=== PATIENT | female | born 1960 | race Caucasian/White ===

== ENCOUNTER → 2017-09-01 | Outpatient (CLI) | payer OTHER | LOC: MAMMO 08:57 | DX: Z12.31 Encounter for screening mammogram for malignant neoplasm of breast (principal) | CPT/HCPCS: G0202 ==

== ENCOUNTER → 2018-08-23 | Outpatient (CLI) | payer OTHER | LOC: MAMMO 09:03 | DX: Z12.31 Encounter for screening mammogram for malignant neoplasm of breast (principal) ==

== ENCOUNTER 2019-01-23 12:30 | Inpatient (IN) | payer OTHER ==
[~2019-01-23] VITALS: Ht 152.4 cm; Wt 81.5 kg
[2019-01-23] MEDS ORDERED: VITAMIN D32000 UNIT PO (12:42)
[2019-01-23] MEDS ORDERED: NORVASC 10MG10 MG PO (12:42)
[2019-01-23] MEDS ORDERED: MAGNESIUM100 M1 PO (12:43)
[2019-01-23] MEDS ORDERED: PRILOSEC OTC20 MG PO (12:44)
[2019-01-23] MEDS ORDERED: INDERAL LA120 MG PO (12:44)
[2019-01-23] MEDS ORDERED: NATURE'S BLEND100 M1 PO (12:45)
[2019-01-23 13:21] LABS: EOS # 0.3 (0.04-0.40); EOS % 2.9 % (1.0-5.0); HEMATOCRIT 44.9 % (37.0-47.0); HEMOGLOBIN 14.3 g/dL (12.5-16.0); LYMPH# 2.1 (1.50-4.00); MEAN CELL VOLUME 84 fl (78-100); MEAN CORPUSCULAR HEMOGLOBIN 27 pg (27-31); MEAN CORPUSCULAR HGB CONC 32 g/dL (33-37); MEAN PLATELET VOLUME 10.6 fl (7.4-10.4); MONO # 0.8 (0.20-0.80); NEU # 7.1 (1.40-6.50); PLATELET COUNT 334 K/mm3 (130-400); RED BLOOD COUNT 5.33 M/mm3 (4.10-5.30); RED CELL DISTRIBUTION WIDTH 14.1 % (11.5-14.5); WHITE BLOOD COUNT 10.3 K/mm3 (4.8-10.8)
[2019-01-23 13:30] LABS: ALBUMIN 4.3 g/dL (3.5-5.0); CALCIUM 10.2 mg/dL (8.4-10.2); POTASSIUM 4.3 mmol/L (3.6-5.0); TOTAL BILIRUBIN 0.7 mg/dL (0.2-1.3); TOTAL PROTEIN 7.1 g/dL (6.3-8.2)
[2019-01-23 15:50] VITALS: BP 119/68
[2019-01-23 15:58] VITALS: BP 119/68
[2019-01-23 16:21] LABS: URINE APPEARANCE CLEAR; URINE BILIRUBIN NEGATIVE (NEGATIVE); URINE BLOOD NEGATIVE (NEGATIVE); URINE COLOR YELLOW; URINE GLUCOSE NEGATIVE (NEGATIVE); URINE KETONE NEGATIVE (NEGATIVE); URINE LEUKOCYTE ESTERASE NEGATIVE (NEGATIVE); URINE NITRATE NEGATIVE (NEGATIVE); URINE PROTEIN(semi-quant) NEGATIVE (NEGATIVE); URINE UROBILINOGEN NORMAL (NORMAL)
[2019-01-23 18:13] VITALS: BP 104/63
[2019-01-23 23:42] VITALS: BP 96/63
[2019-01-24 02:35] VITALS: BP 97/57
[2019-01-24 06:22] VITALS: BP 105/69
[2019-01-24 08:34] LABS: EOS # 0.2 (0.04-0.40); HEMATOCRIT 38.5 % (37.0-47.0); HEMOGLOBIN 11.9 g/dL (12.5-16.0); LYMPH# 1.7 (1.50-4.00); MEAN CELL VOLUME 87 fl (78-100); MEAN CORPUSCULAR HEMOGLOBIN 27 pg (27-31); MEAN CORPUSCULAR HGB CONC 31 g/dL (33-37); MEAN PLATELET VOLUME 10.4 fl (7.4-10.4); MONO # 0.4 (0.20-0.80); PLATELET COUNT 264 K/mm3 (130-400); RED BLOOD COUNT 4.43 M/mm3 (4.10-5.30); RED CELL DISTRIBUTION WIDTH 14.3 % (11.5-14.5); WHITE BLOOD COUNT 5.3 K/mm3 (4.8-10.8)
[2019-01-24 08:47] LABS: CALCIUM 8.4 mg/dL (8.4-10.2); POTASSIUM 3.7 mmol/L (3.6-5.0)
[2019-01-24 10:59] VITALS: BP 118/64
[2019-01-24 14:55] VITALS: BP 105/70
[2019-01-24 18:00] VITALS: BP 134/77
[2019-01-24 23:09] VITALS: BP 118/64
[2019-01-25 06:16] VITALS: BP 123/66
[2019-01-25 07:49] LABS: EOS # 0.2 (0.04-0.40); EOS % 4.1 % (1.0-5.0); HEMOGLOBIN 12.5 g/dL (12.5-16.0); LYMPH# 1.4 (1.50-4.00); MEAN CELL VOLUME 86 fl (78-100); MEAN CORPUSCULAR HEMOGLOBIN 27 pg (27-31); MEAN CORPUSCULAR HGB CONC 31 g/dL (33-37); MEAN PLATELET VOLUME 10.2 fl (7.4-10.4); MONO # 0.4 (0.20-0.80); NEU # 3.5 (1.40-6.50); PLATELET COUNT 262 K/mm3 (130-400); RED BLOOD COUNT 4.64 M/mm3 (4.10-5.30); RED CELL DISTRIBUTION WIDTH 13.9 % (11.5-14.5); WHITE BLOOD COUNT 5.6 K/mm3 (4.8-10.8)
[2019-01-25 08:28] LABS: CALCIUM 9.1 mg/dL (8.4-10.2); POTASSIUM 3.9 mmol/L (3.6-5.0)
[2019-01-25 11:06] VITALS: BP 144/76
[2019-01-25] MEDS ORDERED: PHENERGAN 25 TA25 MG PO (13:05)
== END 2019-01-25 13:56 | disposition home or self-care (01) | DRG 390 ==
LOC: ED 12:30 → MED/SURG 15:09
PROVIDERS: Physician Assistant; ADMIT Nurse Practitioner Primary Care
DX: K56.600 Partial intestinal obstruction, unspecified as to cause (principal); G43.909 Migraine, unspecified, not intractable, without status migrainosus; I10 Essential (primary) hypertension; F32.9 Major depressive disorder, single episode, unspecified; K21.9 Gastro-esophageal reflux disease without esophagitis; Z88.0 Allergy status to penicillin; Z88.8 Allergy status to other drugs, medicaments and biological substances
CPT/HCPCS: C9113; J1650; J2270; J2405; J2550; J7030; Q9967

== ENCOUNTER → 2020-05-21 | Outpatient (CLI) | payer OTHER ==
[~2020-05-21] MED LIST: INDERAL LA120 MG PO; MAGNESIUM100 M1 PO; NATURE'S BLEND100 M1 PO; NORVASC 10MG10 MG PO; PHENERGAN 25 TA25 MG PO; PRILOSEC OTC20 MG PO; VITAMIN D32000 UNIT PO
== END ==
LOC: MAMMO 10:45
DX: Z12.31 Encounter for screening mammogram for malignant neoplasm of breast (principal)

== ENCOUNTER → 2021-05-13 | Outpatient (CLI) | payer OTHER | LOC: MAMMO 12:42 | DX: Z12.31 Encounter for screening mammogram for malignant neoplasm of breast (principal) ==

== ENCOUNTER → 2022-02-04 | Outpatient (CLI) | payer OTHER ==
[2022-02-04 13:51] LABS: BASO # 0.04 K/mm3 (0.02-0.10); EOS # 0.44 K/mm3 (0.04-0.40); EOS % 4.5 % (1.0-5.0); HEMATOCRIT 42.5 % (37.0-47.0); HEMOGLOBIN 13.7 g/dL (12.5-16.0); LYMPH# 2.16 K/mm3 (1.50-4.00); MEAN CELL VOLUME 86 fl (78-100); MEAN CORPUSCULAR HEMOGLOBIN 28 pg (27-31); MEAN CORPUSCULAR HGB CONC 32 g/dL (33-37); MEAN PLATELET VOLUME 9.5 fl (7.4-10.4); MONO # 0.49 K/mm3 (0.20-0.80); NEU # 6.49 K/mm3 (1.40-6.50); PLATELET COUNT 312 K/mm3 (130-400); RED BLOOD COUNT 4.97 M/mm3 (4.10-5.30); RED CELL DISTRIBUTION WIDTH 13.6 % (11.5-14.5); WHITE BLOOD COUNT 9.7 K/mm3 (4.8-10.8)
== END ==
LOC: LAB 13:33
PROVIDERS: Internal Medicine
DX: D50.0 Iron deficiency anemia secondary to blood loss (chronic) (principal)

== ENCOUNTER → 2022-07-01 | Outpatient (CLI) | payer OTHER | LOC: MAMMO 09:09 | DX: Z12.31 Encounter for screening mammogram for malignant neoplasm of breast (principal) ==

== ENCOUNTER 2023-02-06 11:32 | Emergency (ER) | payer OTHER ==
[~2023-02-06] VITALS: Ht 149.9 cm; Wt 81.5 kg
[2023-02-06] MEDS ORDERED: TIZANIDINE HYDRO4 MG PO (12:10)
[2023-02-06] MEDS ORDERED: METOPROLOL SUCC50 M1 PO (12:10)
[2023-02-06] MEDS ORDERED: GLUCOPHAGE PO (12:11)
[2023-02-06] MEDS ORDERED: KETOROLAC10 MG PO (12:12)
[2023-02-06] MEDS ORDERED: PHENERGAN 25 TA25 MG PO (12:13)
[2023-02-06 12:58] LABS: BASO # 0.04 K/mm3 (0.02-0.10); EOS # 0.19 K/mm3 (0.04-0.40); EOS % 2.2 % (1.0-5.0); HEMATOCRIT 44.9 % (37.0-47.0); HEMOGLOBIN 13.9 g/dL (12.5-16.0); LYMPH# 2.03 K/mm3 (1.50-4.00); MEAN CELL VOLUME 79 fl (78-100); MEAN CORPUSCULAR HEMOGLOBIN 24 pg (27-31); MEAN CORPUSCULAR HGB CONC 31 g/dL (33-37); MEAN PLATELET VOLUME 11.6 fl (7.4-10.4); MONO # 0.43 K/mm3 (0.20-0.80); NEU # 5.74 K/mm3 (1.40-6.50); PLATELET COUNT 248 K/mm3 (130-400); RED BLOOD COUNT 5.69 M/mm3 (4.10-5.30); WHITE BLOOD COUNT 8.5 K/mm3 (4.8-10.8)
[2023-02-06 13:07] LABS: POTASSIUM 4.3 mmol/L (3.5-5.1)
[2023-02-06 13:08] LABS: CALCIUM 10.1 mg/dL (8.3-10.5)
[2023-02-06] MEDS ORDERED: MECLIZINE PO (14:38)
[2023-02-06] MEDS ORDERED: NORCO 325 MG-51 TA1 PO (14:38)
[2023-02-06 14:55] VITALS: BP 158/89
== END 2023-02-06 14:58 | disposition home or self-care (01) ==
LOC: ED 11:32
PROVIDERS: Family Medicine
DX: R51.9 Headache, unspecified (principal); H81.10 Benign paroxysmal vertigo, unspecified ear; I10 Essential (primary) hypertension
CPT/HCPCS: J1885; J2360; J7030

== ENCOUNTER → 2024-04-19 | Outpatient (CLI) | payer OTHER ==
[~2024-04-19] MED LIST changes: +GLUCOPHAGE PO; +KETOROLAC10 MG PO; +MECLIZINE PO; +METOPROLOL SUCC50 M1 PO; +NORCO 325 MG-51 TA1 PO; +TIZANIDINE HYDRO4 MG PO
[2024-04-19 09:04] LABS: BASO # 0.06 K/mm3 (0.02-0.10); EOS # 0.26 K/mm3 (0.04-0.40); EOS % 3.5 % (1.0-5.0); HEMATOCRIT 41.5 % (37.0-47.0); HEMOGLOBIN 13.1 g/dL (12.5-16.0); LYMPH# 2.26 K/mm3 (1.50-4.00); MEAN CELL VOLUME 80 fl (78-100); MEAN CORPUSCULAR HEMOGLOBIN 25 pg (27-31); MEAN CORPUSCULAR HGB CONC 32 g/dL (33-37); MEAN PLATELET VOLUME 9.6 fl (7.4-10.4); MONO # 0.58 K/mm3 (0.20-0.80); NEU # 4.21 K/mm3 (1.40-6.50); PLATELET COUNT 378 K/mm3 (130-400); RED BLOOD COUNT 5.22 M/mm3 (4.10-5.30); RED CELL DISTRIBUTION WIDTH 13.2 % (11.5-14.5); WHITE BLOOD COUNT 7.4 K/mm3 (4.8-10.8)
== END ==
LOC: LAB 08:51
PROVIDERS: Nurse Practitioner Family
DX: D50.0 Iron deficiency anemia secondary to blood loss (chronic) (principal)

== ENCOUNTER → 2024-05-09 | Outpatient (CLI) | payer OTHER ==
[2024-05-09 09:18] LABS: BASO # 0.07 K/mm3 (0.02-0.10); EOS # 0.24 K/mm3 (0.04-0.40); EOS % 3.1 % (1.0-5.0); HEMATOCRIT 41.4 % (37.0-47.0); HEMOGLOBIN 12.8 g/dL (12.5-16.0); MEAN CELL VOLUME 79 fl (78-100); MEAN CORPUSCULAR HEMOGLOBIN 25 pg (27-31); MEAN CORPUSCULAR HGB CONC 31 g/dL (33-37); MEAN PLATELET VOLUME 9.8 fl (7.4-10.4); MONO # 0.58 K/mm3 (0.20-0.80); NEU # 4.57 K/mm3 (1.40-6.50); PLATELET COUNT 369 K/mm3 (130-400); RED BLOOD COUNT 5.22 M/mm3 (4.10-5.30); WHITE BLOOD COUNT 7.8 K/mm3 (4.8-10.8)
[2024-05-09 09:30] LABS: ALBUMIN 4.2 g/dL (3.4-4.8)
[2024-05-09 09:31] LABS: CALCIUM 9.8 mg/dL (8.3-10.5)
[2024-05-09 09:34] LABS: TOTAL BILIRUBIN 0.7 mg/dL (0.2-1.2)
== END ==
LOC: LAB 08:54
PROVIDERS: Nurse Practitioner
DX: Z13.220 Encounter for screening for lipoid disorders (principal); E11.9 Type 2 diabetes mellitus without complications

== ENCOUNTER → 2024-09-13 | Outpatient (CLI) | payer OTHER ==
[2024-09-13 09:16] LABS: BASO # 0.05 K/mm3 (0.02-0.10); EOS # 0.21 K/mm3 (0.04-0.40); EOS % 2.6 % (1.0-5.0); HEMATOCRIT 45.3 % (37.0-47.0); HEMOGLOBIN 14.8 g/dL (12.5-16.0); LYMPH# 2.21 K/mm3 (1.50-4.00); MEAN CELL VOLUME 85 fl (78-100); MEAN CORPUSCULAR HEMOGLOBIN 28 pg (27-31); MEAN CORPUSCULAR HGB CONC 33 g/dL (33-37); MEAN PLATELET VOLUME 9.6 fl (7.4-10.4); MONO # 0.56 K/mm3 (0.20-0.80); NEU # 5.11 K/mm3 (1.40-6.50); PLATELET COUNT 315 K/mm3 (130-400); RED BLOOD COUNT 5.31 M/mm3 (4.10-5.30); RED CELL DISTRIBUTION WIDTH 13.3 % (11.5-14.5); WHITE BLOOD COUNT 8.2 K/mm3 (4.8-10.8)
[2024-09-13 09:21] LABS: ALBUMIN 4.5 g/dL (3.4-4.8)
[2024-09-13 09:22] LABS: CALCIUM 9.7 mg/dL (8.3-10.5)
[2024-09-13 09:23] LABS: TOTAL PROTEIN 7.3 g/dL (6.2-8.1)
[2024-09-13 09:25] LABS: TOTAL BILIRUBIN 0.5 mg/dL (0.2-1.2)
== END ==
LOC: LAB 09:05
PROVIDERS: Nurse Practitioner Family
DX: D50.0 Iron deficiency anemia secondary to blood loss (chronic) (principal)